=== PATIENT | female | born 1965 ===

== ENCOUNTER 2017-07-25 10:55 | Day surgery (SDC) | payer OTHER ==
[2017-07-10 14:36] VITALS: BMI 42.1
[2017-07-25 11:53] VITALS: TEMP 98.4
[2017-07-25] MEDS ORDERED: LIDOCAINE HCL 1%, 10 MG/ML (20ML VIAL) SNB ONE (13:10)
[2017-07-25] MEDS ORDERED: BETAMET ACET/BETAMET NA PH 30 MG/5 ML VIAL IM ONE (13:10)
[2017-07-25] MEDS ORDERED: IOHEXOL 180 MG/1 ML ML IJ ONE (13:10)
[2017-07-25] MEDS ORDERED: BUPIVACAINE HCL/PF 0.25% (2.5MG/ML) 10 ML VIAL IJ ONE (13:10)
[2017-07-25 14:31] VITALS: BP 115/74; PULSE 74
== END 2017-07-25 14:40 | disposition home or self-care (01) ==
LOC: JASU-SURG 10:55
PROVIDERS: ATTEND Physical Medicine & Rehabilitation
PROC: 3E0R33Z Introduction of Anti-inflammatory into Spinal Canal, Percutaneous Approach (ICD-10-PCS; 2017-07-25)
PROC: B01BYZZ Fluoroscopy of Spinal Cord using Other Contrast (ICD-10-PCS; 2017-07-25)
PROC: 3E0R3BZ Introduction of Anesthetic Agent into Spinal Canal, Percutaneous Approach (ICD-10-PCS; principal; 2017-07-25 12:00)
DX: M54.16 Radiculopathy, lumbar region (principal); M54.5 Low back pain
CPT/HCPCS: 76000-TC; 84703